=== PATIENT | female | born 1965 | race Caucasian/White ===

== ENCOUNTER 2017-02-20 09:00 | Emergency (ER) | payer OTHER ==
--- NOTE | 2017-02-20 09:53 | ED Physician Documentation ---
Low Back Pain - HISTORIAN Historian: patient - HPI Stated Complaint: Chronic Left Hip Pain Chief Complaint: Low Back Pain/ Injury Additional Information: chronic problem, worse last 1.5 weeks History: history of chronic pain:, back pain Onset: days ago (10) Duration: continues in ED Recent Injury: No Context: lifting, turning, bending Where: work Other Injuries: other (none) Severity: moderate Quality: similar- prior back pain Front/Back of Body, Lg (Color): 1 - pain Associated Symptoms: numbness. denies: fever, chills, sweating, constipation, incontinence, nausea, vomiting, problems urinating, difficulty walking, light- headedness, dizziness, weakness Worsened By:: nothing Relieved By: nothing Further Comments: no - ROS CONST: no problems CVS/RESP: none EYES/ENT: none MS/SKIN/LYMPH: leg pain (left) Neuro/Psych: none GI/: denies: abdominal pain, black stools - PAST HX Past History: other (see below) Other History: diabetes Type 2, hypertension Surgeries/Procedures: cholecystectomy, Immunizations: referred to PCP Allergies/Adverse Reactions: Allergies Allergy/AdvReac Type Severity Reaction Status Date / Time No Known Allergies Allergy Verified 02/20/17 09:12 Home Medications: Ambulatory Orders Medication Instructions Recorded Lisinopril [Zestril] 20 mg PO 02/20/17 Metformin HCl [Glucophage] 500 mg PO DAILY 02/20/17 - SOCIAL HX Smoking History: cigarettes Alcohol Use: none Drug Use: none - FAMILY HX Family History: no significant history - VITAL SIGNS Vital Signs: Vital Signs Temp Pulse Resp BP Pulse Ox 98 F 75 18 143/96 94 02/20/17 09:00 02/20/17 09:00 02/20/17 09:00 02/20/17 09:00 02/20/17 09:00 - REVIEWED ASSESSMENTS Nursing Assessment Reviewed: Yes Vitals Reviewed: Yes Progress - Results/Orders Results/Orders: L-spine x-ray ordered - Progress Progress: pt. stable entire time in er Critical Care Note - Critical Care Note Total Time (mins): 0 ED Results Lab/Radiology - Lab Results Lab Results: none ordered - Radiology Radiology Impressions: x-ray lumbar spine positive for ddd, anterolisthesis of L4 on L5 - Orders Orders: ED Orders Category Date Time Status L SPINE 2 OR 3 VIEWS [RAD] Stat Exams 02/20/17 Ordered Low Back Pain/Injury - Physical Exam General Appearance: mild distress EENT: eye inspection normal, ENT inspection normal, pharynx normal, no signs of dehydration, DARY, no nystagmus, TM's nml Neck: non-tender, painless ROM, trachea midline Resp/CVS: chest non-tender, breath sounds nml, heart sounds nml, no resp. distress, lungs clear, reg. rate & rhythm Abdomen: non-tender, no organomegaly, no pulsatile mass Back: other (tenderness L5-S1 left) Straight Leg Raising: Negative Left, Negative Right Neuro/Psych: oriented x3, motor nml, sensation nml, reflexes nml, mood/affect nml Skin: warm/dry, normal color Extremities: non-tender, normal range of motion, no evidence of injury, edema (2 /5 nonpitting) Discharge Clincal Impression: Sciatica Qualifiers: Laterality: left Qualified Code(s): M54.32 - Sciatica, left side Referrals: Primary Doctor,No [Primary Care Provider] - 2 Days Home Medications: Ambulatory Orders Lisinopril [Zestril] 20 mg PO 02/20/17 Metformin HCl [Glucophage] 500 mg PO DAILY 02/20/17 Comments: Discharged in stable condition with prescription for Parafon Forte DSC 500 mg 1 p.o. qid. Condition: Stable Disposition: 01 HOME, SELF-CARE Decision to Admit: NO Decision Time: 10:43
[2017-02-20 10:52] VITALS: BP 138/68
--- NOTE | 2017-02-20 11:07 | Diagnostic Imaging Report ---
FABIANO SINGH [facility] [address] [facility].[address] [id number] Report Submission Date: Feb 20, 2017 10:38:04 AM CDT Patient Study Name: ESTELA DEGROOT Date: Feb 20, 2017 10:02:17 AM CDT Modality Type: CR Gender: F Description: SPINE : 67 Institution: [facility] Physician: FABIANO SINGH Examination: Plain film lumbar spine History: Back discomfort Findings: 3 views of the lumbar spine demonstrate normal height. No anterior compression. Listhesis of L4 on L5: approximately 15%. Disc space narrowing at L4/L5. Posterior facet degenerative changes. Slight tilt to the left on the anterior posterior film. No soft tissue abnormalities. Impression: Degenerative changes and listhesis. No compression deformity. If patient is experiencing neurologic symptoms, consider obtaining MRI. Electronically signed on Feb 20, 2017 10:38:04 AM CDT by: Jaylon KOHLER
== END 2017-02-20 10:50 | disposition home or self-care (01) ==
LOC: ED 09:00
DX: M54.32 Sciatica, left side (principal)
CPT/HCPCS: 72100; 99283